=== PATIENT | female | born 1950 | race Caucasian/White ===

== ENCOUNTER 2020-12-07 14:51 | Inpatient (IN) | payer MEDICARE, OTHER ==
[~2020-12-07] VITALS: Ht 154.9 cm; Wt 62.1 kg
[~2020-12-07 14:51] MED LIST: ABILIFY 5 MG TAB5 MG PO; BUSPIRONE HCL5 MG PO; HYDROCODON-ACE1 EAC4 PO; ISOSOURCE 1.5250 ML GT; PAROXETINE HCL40 MG PO; WELLBUTRIN SR100 MG PO
[2020-12-07] MEDS ORDERED: PROTONIX 40 MG40 M1 PO (20:28)
[2020-12-07] MEDS ORDERED: LIPITOR TAB 1010 MG PO (20:28)
[2020-12-07] MEDS ORDERED: WELLBUTRIN SR100 MG PO (20:33)
[2020-12-07 22:42] LABS: RED BLOOD COUNT 3.68 M/UL (4.00-5.10); WHITE BLOOD COUNT 4.4 K/UL (4.5-11.0)
[2020-12-07 23:08] LABS: BUN/CREATININE RATIO 11 (0-10)
[2020-12-09 03:22] LABS: HEMOGLOBIN 11.8 gm/dl (12.3-15.3)
[2020-12-09 03:24] LABS: WHITE BLOOD COUNT 7.9 K/UL (4.5-11.0)
[2020-12-09 03:44] LABS: BUN/CREATININE RATIO 9 (0-10)
[2020-12-09 11:15] LABS: HBSAG SCREEN Negative (Negative); HEP A AB, IGM Negative (Negative); HEP B CORE AB, IGM Negative (Negative); HEP C VIRUS AB <0.1 (0.0-0.9)
--- NOTE | 2020-12-09 19:34 | NUR ---
1715 Patient returned from surgery. Respirations even/unlabored. Sleepy, but arouses easily. Denies pain/discomfort. V/S stable. Prineo Dressing intact to right hip. Sister at bedside. Call light in reach.
[2020-12-10 03:28] LABS: WHITE BLOOD COUNT 9.2 K/UL (4.5-11.0)
[2020-12-10 03:37] LABS: HEMOGLOBIN 9.4 gm/dl (12.3-15.3); RED BLOOD COUNT 3.24 M/UL (4.00-5.10)
[2020-12-10 03:50] LABS: BUN/CREATININE RATIO 15 (0-10)
[2020-12-13 03:06] LABS: BUN/CREATININE RATIO 19 (0-10)
[2020-12-13 04:41] LABS: RED BLOOD COUNT 2.23 M/UL (4.00-5.10); WHITE BLOOD COUNT 4.2 K/UL (4.5-11.0)
[2020-12-13 04:43] LABS: HEMOGLOBIN 6.4 gm/dl (12.3-15.3)
[2020-12-13 23:52] LABS: HEMOGLOBIN 10.9 gm/dl (12.3-15.3)
[2020-12-15 05:43] LABS: HEMOGLOBIN 10.2 gm/dl (12.3-15.3)
[2020-12-15 05:46] LABS: RED BLOOD COUNT 3.42 M/UL (4.00-5.10); WHITE BLOOD COUNT 6.3 K/UL (4.5-11.0)
[2020-12-15 06:02] LABS: BUN/CREATININE RATIO 20 (0-10)
--- NOTE | 2020-12-15 11:42 | NUR ---
CALORIE COUNT ORDERED ON 12/11, ENDED ON 12/13. DAY 1 - 12/11: 350KCAL AND 20G PRO FOR DINNER, ENSURE ENLIVE DRANK ONLY. DAY 2 - 12/12: 1270KCAL AND 63G PRO TOTAL, ENSURE ENLIVE AND ICE CREAM EATEN ONLY. DAY 3 - 12/13: 1086KCAL AND 65G PRO TOTAL, ENSURE ENLIVE DRANK AND 10% CHICKEN AND GREAN BEANS EATEN. PTS SOLE SOURCE OF NUTRITION CONTINUES TO BE ENSURE ENLIVE SUPPLEMENT, PROVIDING 85-95% OF NEEDS PER DAY. HAVE WRITTEN NOTE IN CHART WITH INFO WELL, HAVE RECOMMENDED CONSIDERATION OF ALTERNATE NUTRITION IF PT CONTINUES TO RELY ON SUPPLEMENTS RATHER THAN MEALS.
[2020-12-16 06:44] LABS: HEMOGLOBIN 8.7 gm/dl (12.3-15.3)
[2020-12-16 07:20] LABS: BUN/CREATININE RATIO 27 (0-10)
[2020-12-17 06:56] LABS: HEMOGLOBIN 8.7 gm/dl (12.3-15.3)
[2020-12-17 07:19] LABS: BUN/CREATININE RATIO 19 (0-10)
[2020-12-18 06:52] LABS: HEMOGLOBIN 9.3 gm/dl (12.3-15.3)
[2020-12-18 07:06] LABS: BUN/CREATININE RATIO 19 (0-10)
[2020-12-18] MEDS ORDERED: HYDROCODON-ACE1 EAC4 PO (13:05)
[2020-12-18] MEDS ORDERED: DOCUSATE SODIU100 MG PO (13:06)
[2020-12-18] MEDS ORDERED: POLYETHYLENE GL17 GM PO (13:06)
[2020-12-18] MEDS ORDERED: ENOXAPARIN40 MG/0.4 SC (13:11)
[2020-12-20 08:31] LABS: HEMOGLOBIN 9.9 gm/dl (12.3-15.3)
[2020-12-20 08:50] LABS: BUN/CREATININE RATIO 22 (0-10)
[2020-12-21] MEDS ORDERED: ENOXAPARIN40 MG/0.4 SC (09:43)
[2020-12-21] MEDS ORDERED: VEGETABLE LAXA8.6 MG PO (09:43)
== END 2020-12-21 16:30 | disposition home or self-care (01) | DRG 521 ==
LOC: M/S 19:09
PROVIDERS: Internal Medicine; Orthopaedic Surgery; ADMIT Hospitalist
PROC: 0SR90JA Replacement of Right Hip Joint with Synthetic Substitute, Uncemented, Open Approach (ICD-10-PCS; principal; 2020-12-09 13:15)
PROC: 30233N1 Transfusion of Nonautologous Red Blood Cells into Peripheral Vein, Percutaneous Approach (ICD-10-PCS; 2020-12-13)
PROC: 0RRL0JZ Replacement of Right Elbow Joint with Synthetic Substitute, Open Approach (ICD-10-PCS; 2020-12-14)
PROC: 0PSF04Z Reposition Right Humeral Shaft with Internal Fixation Device, Open Approach (ICD-10-PCS; 2020-12-14)
PROC: 01S40ZZ Reposition Ulnar Nerve, Open Approach (ICD-10-PCS; 2020-12-14)
PROC: 0LM30ZZ Reattachment of Right Upper Arm Tendon, Open Approach (ICD-10-PCS; 2020-12-14)
DX: S72.019A Unspecified intracapsular fracture of unspecified femur, initial encounter for closed fracture (principal); K72.00 Acute and subacute hepatic failure without coma; S42.491A Other displaced fracture of lower end of right humerus, initial encounter for closed fracture; B17.9 Acute viral hepatitis, unspecified; D62 Acute posthemorrhagic anemia; F32.9 Major depressive disorder, single episode, unspecified; R63.0 Anorexia; Z20.822 Contact with and (suspected) exposure to COVID-19; E78.5 Hyperlipidemia, unspecified; K21.9 Gastro-esophageal reflux disease without esophagitis; F41.9 Anxiety disorder, unspecified; M19.90 Unspecified osteoarthritis, unspecified site; Z96.611 Presence of right artificial shoulder joint; W18.30XA Fall on same level, unspecified, initial encounter; F79 Unspecified intellectual disabilities; K59.00 Constipation, unspecified; Z90.49 Acquired absence of other specified parts of digestive tract; Z98.890 Other specified postprocedural states; Z88.0 Allergy status to penicillin; Z83.6 Family history of other diseases of the respiratory system; Z83.3 Family history of diabetes mellitus; Z82.49 Family history of ischemic heart disease and other diseases of the circulatory system; Z68.25 Body mass index [BMI] 25.0-25.9, adult
CPT/HCPCS: 36415; 36430; 72040; 72170; 73080; 73200; 73502; 74018; 76000; 76700; 80048; 80053; 80074; 80076; 82140; 82962; 83735; 85014; 85018; 85025; 85027; 85610; 85730; 86850; 86900; 86901; 86920; 86922; 87635; 93005; 97110; 97110-GP-CQ; 97116-GP-CQ; 97162; 97164; 97166; 97168; 97530; 97530-GP-CQ; C1776; J0592; J0690; J1100; J1650; J1885; J1940; J2001; J2270; J2400; J2405; J2704; J2710; J2795; J3010; J3370; J7050; J7120; P9016; U0002